=== PATIENT | female | born 1950 | race Caucasian/White ===

== ENCOUNTER → 2020-01-07 09:58 | Outpatient (REF) | payer MEDICARE, SELFPAY | LOC: ANHLAB 09:58 | PROVIDERS: Visit Provider Nurse Practitioner | DX: D22.5 Melanocytic nevi of trunk (principal) | CPT/HCPCS: 88305; 88342 ==

== ENCOUNTER 2020-02-04 01:06 | Outpatient (CLI) | payer MEDICARE, SELFPAY ==
[2020-02-04 19:25] LABS: SARS-CoV-2 RNA PCR Negative
== END 2020-02-04 01:07 | disposition home or self-care (01) ==
LOC: ANHCOVIDDT 01:06
PROVIDERS: Visit Provider Internal Medicine Gastroenterology
DX: Z01.812 Encounter for preprocedural laboratory examination (principal); Z20.828 Contact with and (suspected) exposure to other viral communicable diseases
CPT/HCPCS: 87635; C9803; U0003

== ENCOUNTER 2020-02-06 01:15 | Day surgery (SDC) | payer MEDICARE, SELFPAY ==
[2020-01-29 14:09] VITALS: BMI 21.6
[2020-02-06 07:44] VITALS: BP 140/95; PULSE 95; RESP 16; TEMP 37.1; O2SAT 97
[2020-02-06] MEDS: LACTATED RINGERS 1,000 ML 150 ML IV CONT (07:59)
--- NOTE | 2020-02-06 08:11 | P.HP_ITS ---
History of Present Illness History of Present Illness Consent: Risks, benefits, and alternatives have been discussed and questions answered. Patient agrees to proceed with procedure. Chief complaint: Neoplasm Screening Narrative: Malinda Greenfield is a 69 year old W female referred for screening colonoscopy. Patient's last colonoscopy was 10 years ago which was normal. Patient is asymptomatic. [facility] Surgical History Surgical History History of section 01/31/1987 History of lumpectomy 07/18/2017 Social History Social History (Updated 01/07/20 @ 09:36 by Dominga Reyna RN) Smoking status: Never smoker Alcohol intake: current Substance use type: does not use Living arrangements: with family Gender identity (if verbalized by the patient): Female Spiritual care concerns: No Meds Home Medications and Allergies Home Medications Medication Instructions Recorded Confirmed Type atorvastatin 10 mg tablet 10 mg PO DAILY tablet 01/07/20 02/06/20 History bimatoprost 0.01 % eye drops 1 drop OPHTHALMIC (EYE) DAILY ml 01/07/20 02/06/20 History brimonidine 0.2 %-timolol 0.5 % 1 drop OPHTHALMIC (EYE) BID ml 01/07/20 02/06/20 History eye drops cholecalciferol (vitamin D3) 50 50 mcg PO DAILY 01/07/20 02/06/20 History mcg (2,000 unit) capsule levothyroxine 112 mcg tablet 112 mcg PO DAILY tablet 01/07/20 02/06/20 History lisinopril 2.5 mg tablet 2.5 mg PO DAILY tablet 01/07/20 02/06/20 History Allergies Allergy/AdvReac Type Severity Reaction Status Date / Time Sulfa (Sulfonamide Allergy Unknown Unknown Verified 02/06/20 07:43 Antibiotics) Vital Signs Vital Signs - 24 hr 02/06/20 07:44 Temperature 37.1 C Pulse Rate 95 Respiratory Rate 16 Blood Pressure 140/95 H Pulse Oximetry 97 Exam Const: Orientation/consciousness: patient oriented x3 Resp: Auscultation: clear to auscultation bilaterally Cardio: Rate: regular rate Rhythm: regular rhythm Heart sounds: no murmurs GI: GI Palp: Yes Soft to palpation, No Tenderness to palpation present (GI), Yes No hepatosplenomegaly present and No Palpable mass present Auscultation: normal bowel sounds Neuro: General: patient oriented x3 and no focal motor deficits Extrem: General: no pedal edema Assessment and Plan Additional Plan Screening colonoscopy in average risk patient
--- NOTE | 2020-02-06 08:34 | WPDANESEPPF ---
Anes - Initial Pre Proc Eval Procedure: Operation Date: 02/06/20 09:00 Proposed Procedures p Screening Colonoscopy - Bassem Benson MD Date/Time: 02/06/20 08:34 Surgeon: Bassem Benson MD Pre Op Diagnosis: Neoplasm Screening Patient Data Age: 69 Gender: F Height: 5 ft 7 in Weight: 63.6 kg Last Vital Signs Temp 98.7 F 02/06/20 07:44 Pulse 95 02/06/20 07:44 Resp 16 02/06/20 07:44 BP 140/95 H 02/06/20 07:44 Pulse Ox 97 02/06/20 07:44 Allergies Allergy/AdvReac Type Severity Reaction Status Date / Time Sulfa (Sulfonamide Allergy Unknown Unknown Verified 02/06/20 07:43 Antibiotics) Home Medications Medication Instructions Recorded Confirmed Type atorvastatin 10 mg tablet 10 mg PO DAILY tablet 01/07/20 02/06/20 History bimatoprost 0.01 % eye drops 1 drop OPHTHALMIC (EYE) DAILY ml 01/07/20 02/06/20 History brimonidine 0.2 %-timolol 0.5 % 1 drop OPHTHALMIC (EYE) BID ml 01/07/20 02/06/20 History eye drops cholecalciferol (vitamin D3) 50 50 mcg PO DAILY 01/07/20 02/06/20 History mcg (2,000 unit) capsule levothyroxine 112 mcg tablet 112 mcg PO DAILY tablet 01/07/20 02/06/20 History lisinopril 2.5 mg tablet 2.5 mg PO DAILY tablet 01/07/20 02/06/20 History Patient hx anesthesia problems: none Family hx anesthesia problems: none PMFSH Past Medical History Medical History (Updated 02/06/20 @ 08:34 by David Umaña MD) High cholesterol HTN (hypertension) Hypothyroid Surgical History Surgical History History of section 01/31/1987 History of lumpectomy 07/18/2017 Social History Social History (Updated 01/07/20 @ 09:36 by Dominga Reyna RN) Smoking status: Never smoker Alcohol intake: current Substance use type: does not use Living arrangements: with family Gender identity (if verbalized by the patient): Female Spiritual care concerns: No Anes - Eval Final PreProcedure Day of Procedure 02/06/20 08:34 Patient weight: normal Heart: regular rate and rhythm Lungs: clear to auscultation Airway: Mallampati scale class II Neurological: alert and oriented Last oral intake: >/= 8 hours ASA classification: II Emergent: no Anesthetic plan: proceed Anesthesia type and monitoring: general and standard monitoring Informed Consent: The patient's anesthetic plan and its attendant risks and benefits were discussed with the patient/family/POA. Questions were solicited and answers provided to the satisfaction of the patient/family/POA.
[2020-02-06 09:08] VITALS: BP 103/72; PULSE 73; RESP 26; O2SAT 97
[2020-02-06 09:18] VITALS: BP 114/68; PULSE 67; RESP 22; O2SAT 97
[2020-02-06 09:28] VITALS: BP 128/64; PULSE 68; RESP 18; O2SAT 97
== END 2020-02-06 09:46 | disposition home or self-care (01) ==
PROVIDERS: Visit Provider Internal Medicine Gastroenterology
PROC: 0DJD8ZZ Inspection of Lower Intestinal Tract, Via Natural or Artificial Opening Endoscopic (ICD-10-PCS; CPT 45378; principal; 2020-02-06 09:00)
DX: Z12.11 Encounter for screening for malignant neoplasm of colon (principal)
CPT/HCPCS: G0121; J2704; J7120

== ENCOUNTER → 2020-02-13 14:10 | Outpatient (REF) | payer MEDICARE, SELFPAY | LOC: ANHLAB 14:10 | PROVIDERS: Visit Provider Nurse Practitioner | DX: D49.2 Neoplasm of unspecified behavior of bone, soft tissue, and skin (principal) | CPT/HCPCS: 88305 ==

== ENCOUNTER 2023-12-29 21:07 | Emergency (ER) | payer MEDICARE, SELFPAY ==
--- NOTE | ~2023-12-29 | XR_ITS ---
EXAMINATION: XR femur RT min 2V DATE: 12/30/2023 00:38 INDICATION: Right thigh pain. Fall. TECHNIQUE: 2 views of right femur on 4 radiographs were obtained. COMPARISON: None. FINDINGS: Alignment is normal. No fracture. There is mild right knee osteoarthritis. No knee joint ef fusion. IMPRESSION: 1. Mild right knee osteoarthritis. Reviewed, dictated and finalized at location A.
--- NOTE | ~2023-12-29 | CT_ITS ---
EXAMINATION: CT pelvis wo con DATE: 12/30/2023 01:41 INDICATION: Right pelvic pain. Fall. TECHNIQUE: Computed tomography (CT) of the pelvis was performed without intravenous contrast. Automat ed exposure control and iterative reconstruction technique were employed. The dose-length product was 179.61 mGy-cm. COMPARISON: None FINDINGS: There are no dilated loops of bowel. The appendix is normal. The bladder is distended. Ther e are no pathologically enlarged lymph nodes. There is no free intraperitoneal fluid. Bone alignment is normal. No fracture. There is severe lower lumbar spondylosis. There is mild osteoarthritis of the hips. Osteitis pubis is noted. IMPRESSION: 1. No fracture. 2. Mild osteoarthritis of the hips. Reviewed, dictated and finalized at location A.
[2023-12-29 21:09] VITALS: BP 154/88; PULSE 87; RESP 17; TEMP 36.3; O2SAT 97
[2023-12-30 00:10] VITALS: BP 163/97; PULSE 81; RESP 16; O2SAT 94
--- NOTE | 2023-12-30 00:16 | PC.NURSE ---
EDP DR FABIAN WINSTON XR ORDERS FOR PT RT LEG.
[2023-12-30] MEDS: HYDROcodone/acetaminophen (*CRX) 5-325 MG TABLET 1 TAB PO (01:55)
--- NOTE | 2023-12-30 02:01 | ED.LOWEXIN ---
HPI - Extremity Injury (Lower) General Chief Complaint: Extremity Injury, Lower Stated Complaint: right leg pain Time Seen by Provider: 12/30/23 00:55 Source: patient Mode of arrival: wheelchair Limitations: no limitations History of Present Illness HPI Narrative: This is a 73 year old female that presents to the ER for right leg pain after a fall. Reports she tripped and fell onto the grass. Reports pain in the right upper leg posteriorly. She has been unable to ambulate due to pain. She did not hit her head or lose consciousness. Denies any other injuries or focal areas of pain. Denies decreased ROM or numbness. Related Data Home Medications Medication Instructions Recorded Confirmed atorvastatin 10 mg tablet 10 mg PO DAILY 01/07/20 02/06/20 bimatoprost 0.01 % eye drops 1 drop ophthalmic (eye) DAILY 01/07/20 02/06/20 brimonidine 0.2 %-timolol 0.5 % 1 drop ophthalmic (eye) BID 01/07/20 02/06/20 eye drops cholecalciferol (vitamin D3) 50 50 mcg PO DAILY 01/07/20 02/06/20 mcg (2,000 unit) capsule levothyroxine 112 mcg tablet 112 mcg PO DAILY 01/07/20 02/06/20 lisinopril 2.5 mg tablet 2.5 mg PO DAILY 01/07/20 02/06/20 Allergies Allergy/AdvReac Type Severity Reaction Status Date / Time Sulfa (Sulfonamide Allergy Unknown Unknown Verified 12/29/23 21:14 Antibiotics) Review of Systems Review of Systems: CONSTITUTIONAL: Denies fever MUSCULOSKELETAL: Reports myalgia. Denies back pain NEUROLOGIC: Denies numbness, or weakness. All systems reviewed & are unremarkable except as noted in HPI and below PMFSH Past Medical History Medical History High cholesterol HTN (hypertension) Hypothyroid Surgical History Surgical History History of section 01/31/1987 History of lumpectomy 07/18/2017 Social History Social History Smoking status: Never smoker Alcohol intake: current Alcohol use details: 1-2 drinks per week Substance use type: does not use Living arrangements: with family Gender identity (if verbalized by the patient): Female Spiritual care concerns: No Exam Narrative: GENERAL: Well-appearing, well-nourished, and in no acute distress. HEAD: Normocephalic, atraumatic. EYES: EOMI. CHEST: No respiratory distress. HEART: Regular rate BACK: No midline spinal tenderness EXTREMITIES: Normal range of motion. No edema or obvious deformity. Normal DP pulses. Normal sensation SKIN: Warm, dry, no rash. NEURO: No focal deficits. Alert and oriented x3. PSYCH: Normal mood and affect Course Course Emergency Course: I am still awaiting imaging results. Patient does not wish to wait any longer. Patient will be given information to access her results on the portal. Patient ambulatory with a walker Vital Signs Vital signs: Vital Signs Temperature 97.3 F L 12/29/23 21:09 Pulse Rate 87 12/29/23 21:09 Respiratory Rate 17 12/29/23 21:09 Blood Pressure 154/88 H 12/29/23 21:09 Pulse Oximetry 97 12/29/23 21:09 Oxygen Delivery Room Air 12/29/23 21:09 Temperature 97.3 F L 12/29/23 21:09 Pulse Rate 81 12/30/23 00:10 Respiratory Rate 16 12/30/23 00:10 Blood Pressure 163/97 H 12/30/23 00:10 Pulse Oximetry 94 12/30/23 00:10 Oxygen Delivery Room Air 12/29/23 21:09 MDM - Extremity Injury (Lower) MDM Narrative Medical decision making narrative: Patient presents to the emergency department after a fall today with right sided hip/pelvic/upper leg pain. Patient is neurovascularly intact. Right femur x-ray without acute osseous abnormalities. Pelvic CT obtained for further evaluation due to patient having difficulty bearing weight. I am still awaiting imaging results and patient does not wish to wait any longer. Patient will be given information to access her results on the por
[2023-12-30 05:11] VITALS: BP 152/80; PULSE 80; RESP 18; TEMP 36.7; O2SAT 96
== END 2023-12-30 05:12 | disposition home or self-care (01) ==
PROVIDERS: Emergency Provider Physician Assistant
DX: M79.604 Pain in right leg (principal); E03.9 Hypothyroidism, unspecified; I10 Essential (primary) hypertension; W01.0XXA Fall on same level from slipping, tripping and stumbling without subsequent striking against object, initial encounter
CPT/HCPCS: 72192; 73552; 99284; A9270